=== PATIENT | male | born 1970 | race Caucasian/White ===

== ENCOUNTER 2017-06-08 17:29 | Emergency (ER) | payer OTHER ==
[~2017-06-08] VITALS: Ht 180.3 cm; Wt 88.0 kg
[~2017-06-08 17:29] MED LIST: ASA400T PO; ASPI-611 PO; CLON-528 PO; CYCL-1 PO; DICY10CA88 PO; HYDR-569 PO; ONDA4TAB6 PO; PRO100T PO; TEST100V5 IM
[2017-06-08] MEDS ORDERED: oxyCODONE/APAP 10/325mg tablet PO ONE (18:05)
[2017-06-08] MEDS ORDERED: HYDROcodone/acetaminophen 10/325mg tab PO ONE (18:25)
[2017-06-08 19:02] LABS: D-DIMER < 0.19 MG/L FEU (0-0.50)
[2017-06-08] MEDS ORDERED: ondansetron/PF 4mg/2ml inj IV ONE (19:15)
[2017-06-08] MEDS ORDERED: ondansetron 4mg rapidly disintigrating tab PO ONE (19:20)
[2017-06-08] MEDS ORDERED: diazepam 5mg tablet PO ONE (19:25)
[2017-06-08] MEDS ORDERED: HYDROmorphone inj. 0.5 MG/0.5 ML DISP.SYRIN IV ONE (20:05)
[2017-06-08] MEDS ORDERED: HYDROmorphone 2mg tablet PO ONE (20:10)
[2017-06-08] MEDS ORDERED: VAL5T PO (20:13)
[2017-06-08] MEDS ORDERED: HYDR-3965 PO (20:13)
[2017-06-08] MEDS ORDERED: ONDA4TAB9 SL (20:13)
[2017-06-08] MEDS ORDERED: METH500T PO (20:13)
[2017-06-08 20:38] VITALS: BP 133/106
== END 2017-06-08 20:48 | disposition home or self-care (01) ==
LOC: ER 17:29
DX: R07.89 Other chest pain (principal); M62.838 Other muscle spasm; J45.909 Unspecified asthma, uncomplicated; G89.29 Other chronic pain; F41.9 Anxiety disorder, unspecified; I10 Essential (primary) hypertension; E78.00 Pure hypercholesterolemia, unspecified; G43.909 Migraine, unspecified, not intractable, without status migrainosus; Z98.52 Vasectomy status; Z87.11 Personal history of peptic ulcer disease; Z88.1 Allergy status to other antibiotic agents; Z88.0 Allergy status to penicillin; Z91.041 Radiographic dye allergy status; Z79.82 Long term (current) use of aspirin; Z79.899 Other long term (current) drug therapy
CPT/HCPCS: 36415; 71046; 83690; 84484; 85379; 93005; 99285; J2405

== ENCOUNTER 2017-09-06 09:44 | Emergency (ER) | payer OTHER ==
[~2017-09-06] VITALS: Ht 180.3 cm; Wt 90.0 kg
[~2017-09-06 09:44] MED LIST changes: +METH500T PO
[2017-09-06] MEDS ORDERED: HYDR-3965 PO (11:19)
[2017-09-06] MEDS ORDERED: HYDROcodone/acetaminophen 5mg/325mg tablet PO ONE (11:20)
[2017-09-06] MEDS ORDERED: LIDOcaine 5% patch TP ONE ×2 (11:20→11:45)
[2017-09-06] MEDS ORDERED: acetaminophen 325mg tablet PO ONE (11:20)
[2017-09-06] MEDS ORDERED: ONDA8TAB9 PO (11:52)
[2017-09-06] MEDS ORDERED: ondansetron 4mg rapidly disintigrating tab PO ONE (11:55)
[2017-09-06 11:58] VITALS: BP 135/89
== END 2017-09-06 12:00 | disposition home or self-care (01) ==
LOC: ER 09:44
DX: M54.9 Dorsalgia, unspecified (principal); R07.89 Other chest pain; G43.909 Migraine, unspecified, not intractable, without status migrainosus; E78.00 Pure hypercholesterolemia, unspecified; I10 Essential (primary) hypertension; J45.909 Unspecified asthma, uncomplicated; G89.29 Other chronic pain; Z98.890 Other specified postprocedural states; Z88.8 Allergy status to other drugs, medicaments and biological substances; Z88.0 Allergy status to penicillin; Z79.899 Other long term (current) drug therapy; Z79.82 Long term (current) use of aspirin
CPT/HCPCS: 99284

== ENCOUNTER 2018-02-12 20:31 | Emergency (ER) | payer OTHER ==
[~2018-02-12] VITALS: Ht 180.3 cm; Wt 95.0 kg
[~2018-02-12 20:31] MED LIST changes: +HYDR-4383 PO; -HYDR-569 PO; +ONDA8TAB9 PO
[2018-02-12 21:19] LABS: BASOPHILS % (AUTO) 0.3 % (0-1); EOSINOPHILS # (AUTO) 0.3 X10'3 (0-0.9); HEMATOCRIT 49.3 % (42.0-52.0); HEMOGLOBIN 16.6 g/dl (14.0-17.9); LYMPHOCYTES # (AUTO) 1.8 X10'3 (1.1-4.8); MEAN CORPUSCULAR HEMOGLOBIN 31.2 PG (27.0-31.0); MEAN CORPUSCULAR HGB CONC 33.6 % (33.0-36.5); MEAN CORPUSCULAR VOLUME 92.7 FL (78-98); MEAN PLATELET VOLUME 7.8 FL (7.4-10.4); MONOCYTES # (AUTO) 0.6 X10'3 (0-0.9); MONOCYTES % (AUTO) 9.4 % (2-12); NEUTROPHILS # (AUTO) 3.7 X10'3 (1.8-7.7); NEUTROPHILS % (AUTO) 58.3 % (42-75); PLATELET COUNT 229 X10'3 (140-440); RED BLOOD COUNT 5.32 X10'6 (4.70-6.10); RED CELL DISTRIBUTION WIDTH 13.8 % (11.5-14.5); WHITE BLOOD COUNT 6.3 X10'3 (4.5-11.0)
[2018-02-12] MEDS ORDERED: dexamethasone sod phosphate 10mg/ml inj IV STA (21:23)
[2018-02-12] MEDS ORDERED: ketorolac trometh. 30mg/ml inj. IV ONE (21:25)
[2018-02-12] MEDS ORDERED: normal saline 1000ML IV soln IVB ONE (21:25)
[2018-02-12] MEDS ORDERED: DIAZ-351 PO (21:26)
[2018-02-12 21:37] LABS: ALANINE AMINOTRANSFERASE 36 U/L (12-78); ALBUMIN 3.5 G/DL (3.4-5.0); ALKALINE PHOSPHATASE 86 IU/L (46-116); ANION GAP 10 (8-16); ASPARTATE AMINO TRANSFERASE 17 U/L (10-37); BILIRUBIN,TOTAL 0.3 MG/DL (0.1-1.0); BLOOD UREA NITROGEN 12 MG/DL (7-18); BUN/CREATININE RATIO 11.1 (5.4-32.0); CALCIUM 8.4 MG/DL (8.5-10.1); CHLORIDE 103 MMOL/L (99-107); CREATININE 1.08 MG/DL (0.60-1.10); GLUCOSE 153 MG/DL (70-104); LIPASE 281 U/L (73-393); POTASSIUM 3.7 MMOL/L (3.5-5.1); SODIUM 136 MMOL/L (135-145); TOTAL CARBON DIOXIDE 23.1 MMOL/L (24-32); eGFR 74 ML/MIN
[2018-02-12 21:39] LABS: INR 0.9 INR; PROTHROMBIN TIME 9.6 SECONDS (9.0-12.0)
[2018-02-12 22:29] VITALS: BP 150/87
== END 2018-02-12 22:31 | disposition home or self-care (01) ==
LOC: ER 20:31
DX: R10.32 Left lower quadrant pain (principal); E78.00 Pure hypercholesterolemia, unspecified; I10 Essential (primary) hypertension; J45.909 Unspecified asthma, uncomplicated; G89.29 Other chronic pain; Z98.890 Other specified postprocedural states; Z91.041 Radiographic dye allergy status; Z91.048 Other nonmedicinal substance allergy status; Z88.0 Allergy status to penicillin; Z88.1 Allergy status to other antibiotic agents; Z79.82 Long term (current) use of aspirin; Z79.899 Other long term (current) drug therapy
CPT/HCPCS: 36415; 80053; 83690; 85025; 85610; 96374; 96375; 99283; J1100; J1885; J7030

== ENCOUNTER 2018-06-05 16:10 | Emergency (ER) | payer OTHER ==
[~2018-06-05] VITALS: Ht 180.3 cm; Wt 94.0 kg
[~2018-06-05 16:10] MED LIST changes: +DIAZ-351 PO
[2018-06-05 16:23] VITALS: BP 144/99
[2018-06-05] MEDS ORDERED: ketorolac tromethamine 15mg/ml inj. IM ONE (17:25)
[2018-06-05] MEDS ORDERED: ORPH100T2 PO (17:38)
== END 2018-06-05 17:50 | disposition home or self-care (01) ==
LOC: ER 16:10
DX: G89.29 Other chronic pain (principal); M54.5 Low back pain; G43.909 Migraine, unspecified, not intractable, without status migrainosus; E78.00 Pure hypercholesterolemia, unspecified; I10 Essential (primary) hypertension; J45.909 Unspecified asthma, uncomplicated; Z88.0 Allergy status to penicillin; Z88.8 Allergy status to other drugs, medicaments and biological substances; Z88.1 Allergy status to other antibiotic agents; Z91.041 Radiographic dye allergy status; Z79.82 Long term (current) use of aspirin
CPT/HCPCS: 96372; 99283; J1885

== ENCOUNTER 2019-06-10 08:43 | Emergency (ER) | payer OTHER ==
[~2019-06-10] VITALS: Ht 180.3 cm; Wt 63.6 kg
[~2019-06-10 08:43] MED LIST changes: +ORPH100T2 PO
[2019-06-10 08:54] VITALS: BP 163/106
[2019-06-10] MEDS ORDERED: HYDROcodone/acetaminophen 5mg/325mg tablet PO ONE (09:30)
[2019-06-10] MEDS ORDERED: ketorolac trometh inj. 60 MG/2 ML VIAL IM ONE (09:30)
[2019-06-10] MEDS ORDERED: orphenadrine citrate 60mg/2ml inj. IM ONE (09:30)
[2019-06-10] MEDS ORDERED: CYCL-1 PO (09:35)
[2019-06-10] MEDS ORDERED: NAPR-56 PO (09:35)
== END 2019-06-10 10:03 | disposition home or self-care (01) ==
LOC: ER 08:43
DX: S39.012A Strain of muscle, fascia and tendon of lower back, initial encounter (principal); M54.42 Lumbago with sciatica, left side; M54.41 Lumbago with sciatica, right side; G89.29 Other chronic pain; E78.00 Pure hypercholesterolemia, unspecified; I10 Essential (primary) hypertension; J45.909 Unspecified asthma, uncomplicated; F41.9 Anxiety disorder, unspecified; Z98.890 Other specified postprocedural states; Z91.041 Radiographic dye allergy status; Z88.0 Allergy status to penicillin; Z88.1 Allergy status to other antibiotic agents; Z91.048 Other nonmedicinal substance allergy status; X58.XXXA Exposure to other specified factors, initial encounter; Y93.89 Activity, other specified; Y92.89 Other specified places as the place of occurrence of the external cause; Y99.8 Other external cause status; Z79.899 Other long term (current) drug therapy
CPT/HCPCS: 96372; 99284; J1885; J2360